=== PATIENT | female | born 1990 | race Caucasian/White ===

== ENCOUNTER → 2019-06-24 13:26 | Outpatient (BNVA) | payer OTHER, SELFPAY | PROVIDERS: Family Provider Family Medicine; Visit Provider Nurse Practitioner Women's Health | DX: R53.83 Other fatigue (principal); E11.9 Type 2 diabetes mellitus without complications | CPT/HCPCS: 80053; 82947; 83036; 84439; 84443; 85007; 85027 ==

== ENCOUNTER → 2020-03-14 14:31 | Outpatient (BNVA) | payer OTHER, SELFPAY | PROVIDERS: Family Provider Family Medicine; Visit Provider Psychiatry & Neurology Psychiatry | DX: F33.2 Major depressive disorder, recurrent severe without psychotic features (principal) | CPT/HCPCS: 99204 ==

== ENCOUNTER → 2020-04-16 08:49 | Outpatient (BNVA) | payer OTHER, SELFPAY | PROVIDERS: Family Provider Family Medicine; Visit Provider Psychiatry & Neurology Psychiatry | DX: F33.2 Major depressive disorder, recurrent severe without psychotic features (principal) | CPT/HCPCS: 99213 ==

== ENCOUNTER 2020-08-03 08:00 | Outpatient (CLI) | payer OTHER, SELFPAY ==
--- NOTE | 2020-08-03 08:30 | MM_ITS ---
WS: [id number] BILATERAL DIGITAL DIAGNOSTIC MAMMOGRAM MAMMOGRAPHY WITH CAD CLINICAL INFORMATION: N63.20 - Unspecified lump in the left breast, unspecified quadrant HISTORY: COMPARISON: None. TECHNIQUE: Bilateral CC, MLO, and ML views. FINDINGS: Scattered fibroglandular densities bilaterally. Palpable marker upper outer left breast. No definite underlying mammographic abnormalities. Ultrasound is pending. Asymmetric dense breast tissue upper outer right breast posteriorly. Recommend spot compression views and ultrasound for further evaluation. ULTRASOUND BREAST LEFT TECHNIQUE: Ultrasound left breast focused area of concern. CLINICAL INFORMATION: N63.20 - Unspecified lump in the left breast, unspecified quadrant COMPARISON: None. FINDINGS: Ultrasound left breast in the area of concern. Dense underlying breast and muscle tissue upper outer left breast and left axillary tail. No suspicious cystic or solid lesions. No lesions to target for b iopsy. Findings are benign. MM/[place] [id number] IMPRESSION: BI-RADS: 0-Incomplete: Need additional imaging evaluation FOLLOW UP: Need Additional Imaging RECOMMEND SPOT COMPRESSION VIEWS AND ULTRASOUND DENSE BREAST TISSUE UPPER OUTER RIGHT BREAST
--- NOTE | 2020-08-03 09:15 | US_ITS ---
WS: [id number] BILATERAL DIGITAL DIAGNOSTIC MAMMOGRAM MAMMOGRAPHY WITH CAD CLINICAL INFORMATION: N63.20 - Unspecified lump in the left breast, unspecified quadrant HISTORY: COMPARISON: None. TECHNIQUE: Bilateral CC, MLO, and ML views. FINDINGS: Scattered fibroglandular densities bilaterally. Palpable marker upper outer left breast. No definite underlying mammographic abnormalities. Ultrasound is pending. Asymmetric dense breast tissue upper outer right breast posteriorly. Recommend spot compression views and ultrasound for further evaluation. ULTRASOUND BREAST LEFT TECHNIQUE: Ultrasound left breast focused area of concern. CLINICAL INFORMATION: N63.20 - Unspecified lump in the left breast, unspecified quadrant COMPARISON: None. FINDINGS: Ultrasound left breast in the area of concern. Dense underlying breast and muscle tissue upper outer left breast and left axillary tail. No suspicious cystic or solid lesions. No lesions to target for b iopsy. Findings are benign. US/US breast LT limited* [id number] IMPRESSION: BI-RADS: 0-Incomplete: Need additional imaging evaluation FOLLOW UP: Need Additional Imaging RECOMMEND SPOT COMPRESSION VIEWS AND ULTRASOUND DENSE BREAST TISSUE UPPER OUTER RIGHT BREAST
== END 2020-08-03 08:01 | disposition home or self-care (01) ==
LOC: RADSHAW 08:02
PROVIDERS: PCP Family Medicine; Visit Provider Nurse Practitioner Women's Health
DX: N63.20 Unspecified lump in the left breast, unspecified quadrant (principal)
CPT/HCPCS: 76642; 77066

== ENCOUNTER 2020-08-15 11:05 | Outpatient (CLI) | payer OTHER, SELFPAY ==
--- NOTE | 2020-08-15 12:00 | MM_ITS ---
WS: [id number] RIGHT DIGITAL MAMMOGRAPHY WITH CAD CLINICAL INFORMATION: R92.8 - Other abnormal and inconclusive findings on diagnostic imaging of [facility] t COMPARISON: August 03, 2020 TECHNIQUE: 4 views of the right breast were obtained. FINDINGS: The right breast is composed of heterogeneous fibroglandular density tissue, which can limit the dete ction of small underlying mass lesions. Asymmetric dense breast tissue upper outer right breast appears stable. This persists on spot giorgi rony views. Ultrasound is pending. ULTRASOUND BREAST RIGHT TECHNIQUE: Ultrasound right breast focused area of concern. CLINICAL INFORMATION: R92.8 - Other abnormal and inconclusive findings on diagnostic imaging of breas t COMPARISON: None. FINDINGS: Ultrasound right breast at the 900-12:00 position. Dense underlying breast tissue. No cystic or solid lesions. No suspicious lesions. No lesions to target for biopsy. Findings are benign. MM/[place] [id number] IMPRESSION: BI-RADS: 2-Benign FOLLOW UP: Age 38 Recommend annual screening mammography age 38.
== END 2020-08-15 11:06 | disposition home or self-care (01) ==
LOC: RADSHAW 11:07
PROVIDERS: PCP Family Medicine; Visit Provider Nurse Practitioner Women's Health
DX: R92.8 Other abnormal and inconclusive findings on diagnostic imaging of breast (principal)
CPT/HCPCS: 76642; 77065

== ENCOUNTER 2021-08-09 14:46 | Outpatient (CLI) | payer OTHER, SELFPAY | END 2021-08-09 14:47 | disposition home or self-care (01) | PROVIDERS: PCP Family Medicine; Visit Provider Nurse Practitioner Women's Health | DX: N92.6 Irregular menstruation, unspecified (principal) | CPT/HCPCS: 36415; 81025; 84702 ==

== ENCOUNTER 2021-08-21 15:25 | Outpatient (CLI) | payer OTHER, SELFPAY ==
--- NOTE | 2021-08-21 | US_ITS ---
WS: [id number] EARLY OBSTETRICAL ULTRASOUND (<14 WEEKS). HISTORY: CONFIRM IUP AND DATING COMPARISON: None available. Transabdominal and transvaginal imaging is submitted. There is an intrauterine gestation. Gestational sac with a mean diameter of 1.7 cm corresponds to gestation of 6 weeks and 6 days. There is a crown- rump length measuring 0.4 cm corresponding to a gestation of 6 weeks 1 day. Normal cardiac activity 1 16 bpm. The gestational sac appears normally positioned. In the RIGHT adnexa is a complex cystic mass with low-level echoes in the RIGHT adnexa. The entire co mplex cystic structure measures 4.5 x 2.3 x 6.0 cm. This cystic mass is inseparable from the normal R IGHT ovary which does have follicles. This complex cystic area associated with the RIGHT ovary measur es 2.3 x 2.7 x 2.8 cm. Similar mass was noted on a prior ultrasound from 02/21/2010. There is through transmission. No increased vascularity. The adjacent ovary has collapsing corpus luteal cyst. Small amount of fluid adjacent to the RIGHT ovary. The LEFT ovary is identified. LEFT ovary measures 1.6 x 2.7 x 2.2 cm. Adjacent and just superior to t he LEFT ovary is a complex heterogeneous area and fluid. There is a lobular appearance of the soft ti ssue and around cystic area. No increased vascularity and is no peristalsis. This round cystic area h as appearance of a large yolk sac. US/US OB <=14 wk fetus w transvag IMPRESSION: 1. Single intrauterine gestation of 6 weeks 1 day. Normal cardiac activity. 2. Large complex cystic mass in the RIGHT adnexa adjacent and inseparable from the ovary. There was a similar mass in the RIGHT adnexa on a prior study from 02/21/2010. This may be a new hemorrhagic cyst. Endometrioma is also a likely p ossibility. 3. Abnormal lobulated soft tissue, cystic structure and fluid in the LEFT adne xa adjacent to the ovary. This cystic structure has the appearance of a very la rge yolk sac. Possibility of a concordant ectopic should be considere d although I think this is less likely. This may be a dilated fallopian tube or adjacent clotted blood from hemorrhage associated with the ovary. 4. Recommend short-term ultrasound follow-up and/or serial beta hCGs. 5. I did discuss these findings with the patient at the time of the ultrasound .
== END 2021-08-21 15:26 | disposition home or self-care (01) ==
LOC: RAD 15:27
PROVIDERS: PCP Family Medicine; Visit Provider Obstetrics & Gynecology
DX: Z36.87 Encounter for antenatal screening for uncertain dates; N83.291 Other ovarian cyst, right side; Z3A.01 Less than 8 weeks gestation of pregnancy
CPT/HCPCS: 76801; 76817

== ENCOUNTER → 2021-09-10 10:02 | Outpatient (BNVA) | payer OTHER, SELFPAY | PROVIDERS: PCP Family Medicine; Visit Provider Obstetrics & Gynecology | DX: O99.210 Obesity complicating pregnancy, unspecified trimester (principal); N83.291 Other ovarian cyst, right side | CPT/HCPCS: 80307; 82950; 84315; 84443; 85027; 86592; 86762; 86803; 86850; 86900; 87086; 87340; 87806 ==

== ENCOUNTER → 2021-09-25 08:15 | Outpatient (BNVA) | payer OTHER, SELFPAY | PROVIDERS: PCP Family Medicine; Visit Provider Obstetrics & Gynecology | DX: O99.210 Obesity complicating pregnancy, unspecified trimester (principal); Z12.4 Encounter for screening for malignant neoplasm of cervix; N83.291 Other ovarian cyst, right side | CPT/HCPCS: 84315; 87491; 87591; 88175 ==

== ENCOUNTER 2021-10-18 13:33 | Outpatient (CLI) | payer OTHER, SELFPAY ==
--- NOTE | 2021-10-18 14:15 | US_ITS ---
WS: [id number] Exam: US pelvic complete* [id number] Date/Time of Exam: 10/18/2021 2:19 PM Reason For Exam: N83.291 - Other ovarian cyst, right side The ovaries are identified. Both ovaries demonstrate normal vascularity. There is a 1 cm cyst in the right ovary. Normal left ovary. No obvious adnexal mass identified on today's exam. Viable intrauteri ne with single vertex fetus is noted estimated at about 15 weeks gestational age. Heart rat e 160 bpm. US/US pelvic complete* [id number] IMPRESSION: 1. 1 cm cyst in the right ovary. The ovaries were otherwise unremarkable with n ormal vascularity. 2. No obvious adnexal mass identified. No abnormal free fluid in the pelvis. 3. Viable intrauterine with single vertex fetus estimated at about 15 weeks gestational age. Heart rate 160 bpm.
== END 2021-10-18 13:34 | disposition home or self-care (01) ==
PROVIDERS: Visit Provider Obstetrics & Gynecology
DX: O34.82 Maternal care for other abnormalities of pelvic organs, second trimester (principal); N83.291 Other ovarian cyst, right side; Z3A.15 15 weeks gestation of pregnancy
CPT/HCPCS: 76856

== ENCOUNTER → 2021-11-01 16:14 | Outpatient (BNVA) | payer OTHER, SELFPAY | PROVIDERS: Visit Provider Obstetrics & Gynecology | DX: R39.9 Unspecified symptoms and signs involving the genitourinary system (principal) | CPT/HCPCS: 81000; 87086 ==

== ENCOUNTER 2022-02-19 11:44 | Outpatient (CLI) | payer OTHER, SELFPAY ==
[2022-02-19 11:50] VITALS: BMI 40.8
[2022-02-19 11:53] VITALS: BP 128/73; PULSE 75
[2022-02-19 11:58] VITALS: RESP 16
[2022-02-19 12:08] VITALS: BP 116/66; PULSE 71
[2022-02-19 12:23] VITALS: BP 115/65; PULSE 68
== END 2022-02-19 12:32 | disposition home or self-care (01) ==
LOC: OPOB 11:45 → OBGYN 11:46
PROVIDERS: Visit Provider Family Medicine
DX: O36.8190 Decreased fetal movements, unspecified trimester, not applicable or unspecified (principal)
CPT/HCPCS: 59025; 99211

== ENCOUNTER 2022-04-08 01:35 | Inpatient (IN) | payer OTHER, SELFPAY ==
[2022-04-08] VITALS (102 sets, daily range): BP systolic 116–168; BP diastolic 56–86; PULSE 61–150; RESP 15–16; TEMP 36.3–36.8; O2SAT 87–100; BMI 39.2
[2022-04-08 01:31] LABS: Actim Prom Positive
[2022-04-08 01:31] LABS: Nitrazine Paper, PH Inconclusive
[2022-04-08 02:57] LABS: Basophils % 0.4 %; Eosinophils # 0.2 10^3/uL (0.0-0.8); Eosinophils % 1.6 %; Hematocrit 32.3 % (37.0-47.0); Hemoglobin 10.7 g/dL (11.5-15.3); Lymphocytes # 1.5 10^3/uL (0.8-4.8); Lymphocytes % 14.2 %; Mean Corpuscular HGB Conc 33.1 g/dL (30.0-36.0); Mean Corpuscular Hemoglobin 29.3 pg (28.0-34.0); Mean Corpuscular Volume 88.5 fl (81-99); Mean Platelet Volume 10.5 fL (7.4-10.4); Monocytes # 0.7 10^3/uL (0.2-0.9); Monocytes % 6.4 %; Neutrophils # 8.29 10^3/uL (1.8-7.7); Neutrophils % 76.7 %; Nucleated Red Blood Cells % 0 %; Platelet Count 252 10^3/cmm (130-400); Red Blood Count 3.65 10^6/uL (4.1-5.3); Red Cell Distribution Width 13.5 % (12.1-15.1); White Blood Count 10.8 10^3/uL (4.0-10.0)
[2022-04-08] MEDS: dextrose 5%-lactated ringers 1,000 ML 125 ML IV ×2 (03:13→12:57)
[2022-04-08] MEDS: miSOPROStol 100 mcg tablet 25 MCG VAGINAL (03:13)
[2022-04-08] MEDS: lactated ringers 1,000 ML 999 ML IV (04:48)
--- NOTE | 2022-04-08 05:49 | ANES.PREANE2 ---
Pre-Anesthetic Assessment Height/Weight: Height 1.65 m Weight 107.048 kg Temp Pulse Resp BP O2 Del Method 98.1 F 64 16 129/65 04/08/22 04:52 04/08/22 05:31 04/08/22 01:16 04/08/22 05:31 04/08/22 05:03 Epidural Familial anesthetic complications: None Was Beta Manuela taken within 24 hours: N/A Was Clonidine taken within 24 hours: N/A Last Intake: 19:00 Social No alcohol and No tobacco Exam alert, oriented x 3, clear to auscultation bilaterally and regular rate & rhythm Airway Submandibular: within normal limits Cervical ROM: within normal limits Mallampati: Class II Dentition: full History/ROS No significant history except as noted and No significant complaints Pulmonary None reported CV/HEM None reported None reported Hepatic None reported GI Gastroesophageal Reflux Disease Metabolic None reported Musc/skel None reported Neuropsych None reported Anesthetic Plan ASA status: 2 Anesthesia: Regional (specify below) (Epidural) Medications/Allergies Home Medications Medication Instructions Recorded Confirmed Last Taken Type prenat.vits,lilian,wjk-chum-cugoz 1 tab PO DAILY 09/02/21 04/08/22 04/07/22 History Allergies Allergy/AdvReac Type Severity Reaction Status Date / Time No Known Allergies Allergy Verified 04/08/22 01:31 Current Medications Generic Name Dose Route Start Last Admin Trade Name Pascualq PRN Reason Stop Dose Admin Dextrose/Lactated Ringer's 1,000 mls @ 125 mls/hr 04/08/22 01:45 04/08/22 04:49 Dextrose 5%-Lactated Ringers IV 0 mls/hr .Q8H ARLEY Infusion Lactated Ringer's 1,000 mls @ 999 mls/hr 04/08/22 04:28 04/08/22 04:48 Lactated Ringers IV 999 mls/hr .Q1H1M PRN Administration See label comments Misoprostol 25 mcg 04/08/22 01:45 04/08/22 03:13 Misoprostol 100 Mcg Tablet VAGINAL 04/08/22 09:46 25 mcg Q4H ARLEY Administration PFSH Anesthesia Medical History Anxiety and depression Has had symptoms on and off since the age of 15. Has been on medication in the past-Wellbutrin and Abilify. Has not been on medication since at least 2012. She does not have a therapist or psychiatrist currently. No pertinent past medical history Denies diabetes, asthma, hypertension, seizures, DVT/PE, stroke PCP: None Surgical History No history of previous surgery Family History Father Hypertension Stroke Hypercholesteremia Grandmother Diabetes maternal Breast cancer maternal--dx age 40 Family/Other Ovarian cancer Paternal Great Aunt--dx age unknown Colon cancer Paternal Great Aunt--dx age unknown Breast cancer Paternal Great Aunt--dx age unknown Sister Thyroid disease Diabetes Denies family history of Heart disease Uterine cancer Female Reproductive History Date of last menstrual period: 06/10/19 : 2 Data Anesthesia 04/08/22 02:30 Short CBC 04/08/22 Range/Units 02:30 WBC 10.8 H (4.0-10.0) 10^3/uL Hgb 10.7 L (11.5-15.3) g/dL Hct 32.3 L (37.0-47.0) % MCV 88.5 (81-99) fl Plt Count 252 (130-400) 10^3/cmm Neut % (Auto) 76.7 % Neut # (Auto) 8.29 H (1.8-7.7) 10^3/uL Cardiac Studies: No Data to Display
--- NOTE | 2022-04-08 06:28 | ANES.PROC ---
Anesthesia Procedures Procedure/Date: 04/08/22 Epidural: Time Out Performed: Yes Consents Signed: Procedure Consent and NPO Consent Consent: requested by attending/covering physician, from patient, risks and benefits reviewed and patient agrees to proceed Lumbar Level: L3-L4 Epidural position: sitting Epidural procedure: sterile prep of area, 1% lidocaine to numb the area (3mL), neg for paresthesia, test dose given, 1.5% xylocaine 1:200k epi (3mL/2mL), 0.2% Ropivacaine bolus ml (5), placed PCEA, no systemic response, sterile dressing applied and 0.2% Ropiavacaine @ mls/hr (11) Additional Comments: GRISEL 6cm, catheter placed at 11cm
--- NOTE | 2022-04-08 07:00 | PM.OPHPUD ---
Labor & Delivery H&P Update Date of Procedure: April 08, 2022 Date H&P Performed: 04/01/22 Admission Diagnosis: 32-year-old 2 para 1-0-0-1 at 39 weeks estimated gestational age presenting with spontaneous rupture of membranes Planned procedure: Spontaneous vaginal delivery Other information: The patient presented to the hospital after having spontaneous rupture of membranes. Her cervix was still unfavorable, and the decision was made to place her on Cytotec 25 mcg per vagina. heart tones were reactive and appropriate. Her has been relatively unremarkable. Her labs been notable for being B+ with an antibody negative. She is rubella immune. Her GBS status is negative. The remainder of her infectious disease profile is within normal limits.
[2022-04-08] MEDS: oxytocin 30 UNIT/500 ML BAG IV (13:03)
[2022-04-08] MEDS: acetaminophen 325 mg Tablet 650 MG PO (13:06)
--- NOTE | 2022-04-08 17:50 | P.PCNOB_ITS ---
Delivery Note: Date of delivery: April 08, 2022 Pre-delivery diagnoses: 32-year-old 2 para 1-0-0-1 at 39 weeks estimated gestational age presenting with spontaneous rupture membranes Post-delivery diagnoses: Status post spontaneous vaginal delivery Procedure: Spontaneous vaginal delivery Delivering Physician: Mike Henry Estimated blood loss (mL): 100 Pre-Delivery Course: The patient presented to the hospital with rupture membranes. She was not having consistent contractions. Her cervix was unfavorable, and the decision was made to start with Cytotec. An epidural was placed. Her contractions were irregular and spacing out, so Pitocin was added to augment her labor. She then progressed to complete without difficulty. Delivery: DELIVERY: The patient progressed to complete without difficulty. She delivered a female with a weight of 6 pounds 12 ounces with Apgars of 9, 9. The baby was delivered from the NICKOLAS position and placed on the mother's abdomen. The cord was then clamped and cut. There was no nuchal cord. There was no meconium. The placenta and 3 vessel cord were delivered intact shortly thereafter. The perineum and vaginal vault were carefully examined. No significant lacerations were noted. Both the mother and the baby were in stable condition. Post-Delivery Status: Good History History History 2 Term 1 0 Miscarriages/Ectopic 0 Living Children 1 A&P Assessment and plan (1) 39 weeks gestation of : I anticipate routine care. (2) Spontaneous vaginal delivery: Coding Level of Care Code Acute Flexo Folder Gluer Operator for Chg Fwd Diagnoses 39 weeks gestation of Z3A.39 Spontaneous vaginal delivery O80
[2022-04-08] MEDS: docusate sodium 100 mg Capsule PO (20:40)
[2022-04-08] MEDS: ibuprofen 800 mg tablet PO (20:40)
[2022-04-09] MEDS: acetaminophen 325 mg Tablet 650 MG PO (00:55)
[2022-04-09 01:35] VITALS: BP 116/82; PULSE 78; RESP 17; O2SAT 97
[2022-04-09 03:24] VITALS: BP 124/76; PULSE 76; RESP 18; O2SAT 98
[2022-04-09] MEDS: HYDROcodone-acetaminophen 5-325 mg Tablet PO ×2 (04:12→10:19)
[2022-04-09 05:41] LABS: Hematocrit 28.5 % (37.0-47.0); Hemoglobin 9.3 g/dL (11.5-15.3); Mean Corpuscular HGB Conc 32.6 g/dL (30.0-36.0); Mean Corpuscular Hemoglobin 29.2 pg (28.0-34.0); Mean Corpuscular Volume 89.3 fl (81-99); Mean Platelet Volume 10.1 fL (7.4-10.4); Platelet Count 201 10^3/cmm (130-400); Red Blood Count 3.19 10^6/uL (4.1-5.3); Red Cell Distribution Width 13.7 % (12.1-15.1); White Blood Count 10.2 10^3/uL (4.0-10.0)
--- NOTE | 2022-04-09 06:55 | PM.OBGYDC ---
Discharge Providers RESIDENT CARE MANAGER Date of Admission: 04/08/22 01:35 Date of Discharge: 04/09/22 Attending Provider at Admission: Mike Henry MD Attending Provider at Discharge: Mike Henry MD Diagnoses at Discharge Discharge Diagnosis (1) 39 weeks gestation of : Status: Acute (2) Spontaneous vaginal delivery: Status: Acute Reason for Visit Reason for Visit: POSSIBLE SROM Hospital Course Hospital Course The patient has had an unremarkable hospital stay. She arrived the day prior to delivery with spontaneous rupture membranes. She was placed on Cytotec 25 mcg. An epidural was placed. Her labor was then augmented with Pitocin. She progressed to complete and had an unremarkable delivery of a healthy appearing 9-week female . Her course was also unremarkable. Her bleeding was within normal limits. Her pain was reasonably well controlled. She did have some problems of cramping this morning, but that resolved with hydrocodone. She did breast-feed a little bit initially, but never intended to breast-feed for long, and has transitioned to bottlefeeding with formula only at this point. Information Peripartum Data: Infant Delivery Method: Vaginal Physical Exam Narrative: The patient is alert. She appears comfortable. Her heart has a regular rate and rhythm with no murmurs appreciated. Lungs are clear to auscultation bilaterally. Her fundus is firm and below the umbilicus. Urinary Catheter Management: Blanca Latex: Cath Placed During This Visit: yes, but has since been removed by the nurse Reason for Continuing Indwelling Catheter: Decision to DC Catheter Urinary Catheter Date of Insertion: 04/08/22 Urinary Catheter Time of Insertion: 09:45 Date Urinary Catheter Removed: 04/08/22 Time Urinary Catheter Discontinued: 17:25 History History History 2 Term 1 0 Miscarriages/Ectopic 0 Living Children 1 Discharge Data Studies Completed and Pending Laboratory Results WBC 10.2 10^3/uL (4.0-10.0) H 04/09/22 05:30 RBC 3.19 10^6/uL (4.1-5.3) L 04/09/22 05:30 Hgb 9.3 g/dL (11.5-15.3) L 04/09/22 05:30 Hct 28.5 % (37.0-47.0) L 04/09/22 05:30 MCV 89.3 fl (81-99) 11/30/22 05:30 MCH 29.2 pg (28.0-34.0) 04/09/22 05:30 MCHC 32.6 g/dL (30.0-36.0) 04/09/22 05:30 RDW 13.7 % (12.1-15.1) 04/09/22 05:30 Plt Count 201 10^3/cmm (130-400) 04/09/22 05:30 MPV 10.1 fL (7.4-10.4) 04/09/22 05:30 Neut % (Auto) 76.7 % 04/08/22 02:30 Lymph % (Auto) 14.2 % 04/08/22 02:30 [place] % (Auto) 6.4 % 04/08/22 02:30 Eos % (Auto) 1.6 % 04/08/22 02:30 Baso % (Auto) 0.4 % 04/08/22 02:30 Neut # (Auto) 8.29 10^3/uL (1.8-7.7) H 04/08/22 02:30 Lymph # (Auto) 1.5 10^3/uL (0.8-4.8) 04/08/22 02:30 [place] # (Auto) 0.7 10^3/uL (0.2-0.9) 04/08/22 02:30 Eos # (Auto) 0.2 10^3/uL (0.0-0.8) 04/08/22 02:30 Baso # (Auto) 0.0 10^3/uL (0.0-0.1) 04/08/22 02:30 Nucleated RBC % (auto) 0 % 04/08/22 02:30 Nucleated RBCs # 0.0 /100WBC 04/08/22 02:30 Insulin-like GF I Positive 04/08/22 01:24 Vitals Last Vital Signs Temp 98 F 04/08/22 23:19 Pulse 76 04/09/22 03:24 Resp 18 04/09/22 03:24 BP 124/76 04/09/22 03:24 Pulse Ox 98 04/09/22 03:24 O2 Del Method 04/09/22 01:35 Discharge Plan Discharge Patient Disposition: Home Condition: Stable Prescriptions: New ibuprofen 800 mg Tablet 800 mg PO TID Qty: 45 0RF Continued prenat.vits,lilian,auz-xaso-zsikz Tablet 1 tab PO DAILY Discharge Orders: Discharge Order (Routine); Ordered 04/09/22 Ordered By: Mike Henry Referrals: Mike Henry MD [Physician] - 6 Weeks Discharge Diet: Usual diet Discharge Activity: Limit activity as instructed Patient Instructions: Opioid Safety Discharge Attestations RESIDENT CARE MANAGER Time Spent in Discharge Care*: less than 30 min Coding Level of Care Code Acute Color Expert for Chg Fwd Diagnoses 39 weeks gestation of Z3A.39 Spontaneous vaginal delivery O80
[2022-04-09] MEDS: ibuprofen 800 mg tablet PO ×2 (08:06→15:06)
[2022-04-09] MEDS: prenatal vitamin Capsule 1 CAP PO (08:06)
[2022-04-09] MEDS: docusate sodium 100 mg Capsule PO (08:07)
--- NOTE | 2022-04-09 09:00 | ANE.PACU2 ---
Inpatient post-anesthesia follow up: Airway intact: Yes Vital signs: Temperature 98 F Pulse Rate 66 Respiratory Rate 16 Blood Pressure 121/69 Pulse Oximetry 99 Oxygen Delivery Me thod Room Air Oxygen Flow Rate Fraction of Inspir ed Oxygen Hydration adequate: Yes Nausea and vomiting: No Pain level: 1 Mental status: Baseline
[2022-04-09 19:00] VITALS: BP 121/69; PULSE 66; RESP 16; O2SAT 99
== END 2022-04-09 19:05 | disposition home or self-care (01) | DRG 807 ==
PROVIDERS: Admitting Provider Family Medicine; Visit Provider Family Medicine
DX: O99.214 Obesity complicating childbirth (principal); Z37.0 Single live birth; O34.83 Maternal care for other abnormalities of pelvic organs, third trimester; N83.201 Unspecified ovarian cyst, right side; Z3A.39 39 weeks gestation of pregnancy; Z79.891 Long term (current) use of opiate analgesic
CPT/HCPCS: 12345; 36415; 51702; 59025; 59409; 83986; 84112; 85025; 85027; 98960; 99211; J2590; J2795; J3490; J7120; J7121

== ENCOUNTER 2022-04-19 06:45 | Observation (INO) | payer OTHER, SELFPAY ==
[2022-04-18] VITALS (26 sets, daily range): BP systolic 128–219; BP diastolic 61–117; PULSE 56–85; BMI 39.2
[2022-04-18 14:36] LABS: Basophils # 0.1 10^3/uL (0.0-0.1); Basophils % 0.8 %; Eosinophils # 0.2 10^3/uL (0.0-0.8); Eosinophils % 3.1 %; Hematocrit 37.1 % (37.0-47.0); Hemoglobin 11.8 g/dL (11.5-15.3); Lymphocytes % 27.5 %; Mean Corpuscular HGB Conc 31.8 g/dL (30.0-36.0); Mean Corpuscular Hemoglobin 28.4 pg (28.0-34.0); Mean Corpuscular Volume 89.4 fl (81-99); Mean Platelet Volume 9.3 fL (7.4-10.4); Monocytes # 0.4 10^3/uL (0.2-0.9); Monocytes % 5.6 %; Neutrophils # 4.62 10^3/uL (1.8-7.7); Neutrophils % 62.6 %; Nucleated Red Blood Cells % 0 %; Platelet Count 381 10^3/cmm (130-400); Red Blood Count 4.15 10^6/uL (4.1-5.3); Red Cell Distribution Width 13.4 % (12.1-15.1); White Blood Count 7.4 10^3/uL (4.0-10.0)
[2022-04-18 14:49] LABS: Add Urine Culture? No; Add Urine Microscopic? YES; Bacteria Urine TRACE /hpf; Bilirubin Urine Neg (Negative); Blood Urine 3+ (Negative); Glucose Urine UA Norm (Normal); Ketones Urine Negative (Negative); Leukocyte Esterase Urine Negative (Negative); Mucus Urine 1+ /hpf; Nitrate Urine Negative (Negative); Protein Urine Neg (Negative); Specific Gravity, Urine 1.015 (1.005-1.030); Squamous Epithelial Cell Urine 0-4 /hpf (0-5); Urine Appearance Clear (CLEAR); Urine Color Yellow (Yellow); Urobilinogen Urine Norm (Negative); WBC Urine 0-4 /hpf (0-5); pH Urine 7 (5-7)
[2022-04-18 14:51] LABS: Alanine Aminotransferase 30 U/L (0-33); Albumin Level 3.8 g/dL (3.5-5.2); Alkaline Phosphatase 97 U/L (35-105); Anion Gap 14.8 (5-19); Aspartate Amino Transferase 17 U/L (0-32); Blood Urea Nitrogen 8 mg/dL (6-20); Calcium 9.1 mg/dL (8.5-10.5); Carbon Dioxide 26 mmol/L (22-29); Chloride 101 mmol/L (98-107); Globulin 3.6 g/dL (1.3-4.6); Glomerular Filtration Rate 95.8 mL/min (90-130); Glucose 75 mg/dL (65-115); Osmolality Calculated 283 mOsm/kg (285-295); Potassium 3.8 mmol/L (3.5-5.1); Sodium 138 mmol/L (136-145); Total Bilirubin 0.4 mg/dL (0.15-1.2); Total Protein 7.4 g/dL (6.6-8.7); Uric Acid 4.4 mg/dL (2.4-5.7)
[2022-04-18 14:59] LABS: Urine Creatinine 111 mg/dL (28-217); Urine Protein Random 16 mg/dL
[2022-04-18 15:00] LABS: UPRO/UCREAT Ratio 0.14 mg/mg CR
[2022-04-18] MEDS: labetalol 200 mg Tablet PO ×2 (15:24→17:13)
[2022-04-18] MEDS: ibuprofen 800 mg tablet PO (15:56)
[2022-04-18] MEDS: labetalol 5 mg/mL SDV 20mL 20 MG IVP (15:57)
[2022-04-18] MEDS: labetalol 5 mg/mL SDV 20mL 40 MG IVP (16:13)
[2022-04-18] MEDS: labetalol 5 mg/mL SDV 20mL 80 MG IVP (16:28)
--- NOTE | 2022-04-18 16:36 | CTR_ITS ---
PROCEDURE INFORMATION: Exam: CT Head Without Contrast Exam date and time: 04/18/2022 4:56 PM Age: 32 years old Clinical indication: Pain; Headache; Additional info: Severe headache and elevated blood pressure, call ob and i can bring her down. TECHNIQUE: Imaging protocol: Computed tomography of the head without contrast. Radiation optimization: All CT scans at this facility use at least one of these dose optimization techniques: automated exposure control; mA and/or kV adjustment per patient size (includes targeted exams where dose is matched to clinical indication); or iterative reconstruction. COMPARISON: No relevant prior studies available. RADIATION DOSE METRICS: Total DLP (mGy-cm): 1033.74 FINDINGS: Brain: Normal. No hemorrhage. Unremarkable white matter. No mass effect. Cerebral ventricles: No ventriculomegaly. Paranasal sinuses: Visualized sinuses are unremarkable. No fluid levels. Mastoid air cells: Visualized mastoid air cells are well aerated. Bones/joints: Unremarkable. No acute fracture. Soft tissues: Unremarkable. CT/CT head wo con* [id number] IMPRESSION: No acute intracranial abnormality.
[2022-04-18] MEDS: sodium chloride 0.9% 1,000 ML 250 ML IV (17:14)
[2022-04-18] MEDS: HYDROcodone-acetaminophen 5-325 mg Tablet PO (20:47)
[2022-04-19] VITALS (72 sets, daily range): BP systolic 100–196; BP diastolic 51–92; PULSE 52–77; RESP 16–18; TEMP 36–36.6; O2SAT 96–98
[2022-04-19] MEDS: hydroCHLOROthiazide 25 mg Tablet PO ×2 (00:53→08:46)
[2022-04-19] MEDS: HYDROcodone-acetaminophen 5-325 mg Tablet PO ×3 (00:57→12:05)
[2022-04-19] MEDS: cloNIDine 0.1 mg Tablet PO ×2 (02:14→03:56)
[2022-04-19] MEDS: magnesium sulfate premix 4 GM/100 ML PREMIX IV (04:20)
[2022-04-19] MEDS: dextrose 5%-lactated ringers 1,000 ML 75 ML IV (04:20)
[2022-04-19] MEDS: magnesium sulfate premix 20 GM/500 ML BAG IV (04:20)
[2022-04-19] MEDS: cloNIDine 0.1 mg Tablet 0.2 MG PO (06:02)
[2022-04-19] MEDS: labetalol 200 mg Tablet 400 MG PO (08:46)
[2022-04-19] MEDS: ibuprofen 800 mg tablet PO (08:59)
[2022-04-19] MEDS: NIFEdipine ER (24 hr) 30 mg Tablet 60 MG PO (10:16)
--- NOTE | 2022-04-19 11:23 | CTR_ITS ---
PROCEDURE INFORMATION: Exam: CTA Head With Contrast, Arteriography and venography Exam date and time: 04/19/2022 1:32 PM Age: 32 years old Clinical indication: Pain; Headache; Additional info: Severe occipital headache, also needs venogram TECHNIQUE: Imaging protocol: Computed tomographic angiography and venography of the head with contrast. Exam focused on the arteries and veins. 3D rendering (Not supervised by radiologist): MIP and/or 3D reconstructed images were created by the technologist. Radiation optimization: All CT scans at this facility use at least one of these dose optimization techniques: automated exposure control; mA and/or kV adjustment per patient size (includes targeted exams where dose is matched to clinical indication); or iterative reconstruction. Contrast material: OMNIPAQUE 350; Contrast volume: 100 ml; Contrast route: INTRAVENOUS (IV); COMPARISON: CT head wo con* [id number] 04/18/2022 4:56 PM RADIATION DOSE METRICS: Total DLP (mGy-cm): 3052.54 FINDINGS: ANTERIOR CIRCULATION: Right internal carotid artery: Intracranial segment is patent with no significant stenosis. No aneurysm. Right middle cerebral artery: No occlusion or significant stenosis. No aneurysm. Right anterior cerebral artery: No occlusion or significant stenosis. No aneurysm. Left internal carotid artery: Intracranial segment is patent with no significant stenosis. No aneurysm. Left middle cerebral artery: No occlusion or significant stenosis. No aneurysm. Left anterior cerebral artery: No occlusion or significant stenosis. No aneurysm. POSTERIOR CIRCULATION: Right vertebral artery: No occlusion or significant stenosis. No aneurysm. Left vertebral artery: No occlusion or significant stenosis. No aneurysm. Basilar artery: No occlusion or significant stenosis. No aneurysm. Right posterior cerebral artery: No occlusion or significant stenosis. No aneurysm. Left posterior cerebral artery: No occlusion or significant stenosis. No aneurysm. Superior sagittal sinus: Patent. Straight sinus: Patent. Transverse sinuses: Patent. Sigmoid sinuses: Patent. Internal jugular veins: Limited visualized internal jugular veins are patent. Brain: Questionable subtle hypoattenuation in the left greater than right posterior parieto-occipital lobes, possibly artifactual. No definite mass, mass effect, or midline shift. Cerebral ventricles: No ventriculomegaly. Bones/joints: Unremarkable. No acute fracture. Soft tissues: Unremarkable. CT/CT angio head [id number] IMPRESSION: 1. Questionable subtle hypoattenuation in the left greater than right posterior parieto-occipital lobes, possibly artifactual. Given the patient's clinical history, MRI may be useful to exclude posterior reversible encephalopathy syndrome. 2. No large vessel stenosis or occlusion. No evidence of venous sinus thrombosis.
--- NOTE | 2022-04-19 11:27 | P.HP_ITS ---
Providers/Chief Complaint Admitting Physician: Mike Henry MD Chief Complaint: ELEVATED BLOOD PRESSURES POST History of Present Illness Talia is a 32-year-old 2 para 2-0-0-2 female who had an unremarkable vaginal delivery on March 08. Over the last week, the patient has had intermittent severe headaches that have at times been bad enough that she has been incapacitated and crying. When I saw her in my office last week, her headache started in the occipital region but she began having pulsating/stabbing pains in her right temporal area. Yesterday, when I saw her she was once again having what started as an occipital headache, but progressed to have a pulsating stabbing pains in her left alevism area. In addition to that she was also having severe elevations of her blood pressure including some systolic blood pressures greater than 200. She was having no other symptoms of preeclampsia. Her swelling was improving. There was no obvious visual changes. There was no abdominal pain. And her preeclamptic profile done both last week and this think were within normal limits. Review of Systems General: Reports: 10 or more systems reviewed and unremarkable except in HPI and below Const: Reports: fatigue; Denies: fever(s) Eyes: Denies: change in vision Card: Denies: chest pain Musc: Reports: back pain Jose/Lymph: Denies: easy bruising Medications/Allergies Home Medications Medication Instructions Recorded Confirmed Last Taken Type prenat.vits,lilian,ndn-bvti-ygiia 1 tab PO DAILY 09/02/21 04/08/22 04/18/22 08:00 History ibuprofen 800 mg tablet 400 mg PO TID 04/18/22 04/18/22 12:30 History escitalopram oxalate 10 mg tablet 10 mg PO DAILY #30 tabs 04/20/22 Unknown Rx (Lexapro) hydrochlorothiazide 25 mg tablet 25 mg PO DAILY #30 tabs 04/20/22 Unknown Rx nifedipine 30 mg tablet,extended 30 mg PO DAILY #30 tabs 04/20/22 Unknown Rx release 24 hr (Procardia XL) Allergies Allergy/AdvReac Type Severity Reaction Status Date / Time No Known Allergies Allergy Verified 04/08/22 01:31 PFSH Acute PFSH: Medical History Anxiety and depression Has had symptoms on and off since the age of 15. Has been on medication in the past-Wellbutrin and Abilify. Has not been on medication since at least 2012. She does not have a therapist or psychiatrist currently. No pertinent past medical history Denies diabetes, asthma, hypertension, seizures, DVT/PE, stroke PCP: None Surgical History No history of previous surgery Family History Father Hypertension Stroke Hypercholesteremia Grandmother Diabetes maternal Breast cancer maternal--dx age 40 Family/Other Ovarian cancer Paternal Great Aunt--dx age unknown Colon cancer Paternal Great Aunt--dx age unknown Breast cancer Paternal Great Aunt--dx age unknown Sister Thyroid disease Diabetes Denies family history of Heart disease Uterine cancer Female Reproductive History: Date of last menstrual period: 06/10/19 Vitals/I&O/Wt Last Vital Signs Pulse 62 04/19/22 10:26 Resp 16 04/19/22 04:03 BP 132/70 04/19/22 10:26 Pulse Ox 98 04/19/22 04:10 04/18/22 04/19/22 04/19/22 22:59 06:59 14:59 Output Total 750 / 750 1700 / 1700 Balance -750 / -750 -1700 / -1700 Weight last 48 hrs Weight 236 lb Weight 236 lb Physical Exam Const: COMMON NORMALS: patient oriented x3 and alert HENMT: COMMON NORMALS: moist oral mucous membranes HEAD & SCALP: normal to inspection Chest: COMMONS NORMALS: normal inspection of the chest Resp: COMMON NORMALS: clear to auscultation bilaterally AUSCULTATION: clear to auscultation bilaterally Cardio: COMMON NORMALS: regular rate and regular rhythm RATE: regular rate RHYTHM: regular rhythm GI: INSPECTION: Yes normal to inspection Extremity: COMMON NORMALS: normal to inspection GENERAL: Yes edema (Trace) Neuro: COMMON NORMALS: patient oriented x3, moves all extremities and no sensory deficits noted SENSORIUM/ORIENTATION: Yes alert CRANIAL NERVES: Yes CN normal except as noted Psych: COMMON NORMALS: mental status grossly normal Skin: COMMON NORMALS: no rashes or lesions noted GENERAL SKIN EXAM: no rashes or lesions noted Urinary Catheter Management: Blanca: Cath Placed During This Visit: yes Reason for Continuing Indwelling Catheter: Accurate Measurement of Urinary Output in Critically Ill Patients Urinary Catheter Date of Insertion: 04/19/22 Urinary Catheter Time of Insertion: 04:45 Data 04/18/22 14:15 04/18/22 14:15 CT Head: Radiologist's impression: No acute abnormalities noted A&P Assessment and plan (1) Severe headache: The patient continues to have severe headaches unless she is being treated continuously with Tylenol and ibuprofen. After discussing the case with Dr. Myrick we will proceed with a CT venogram and angiogram of the head. (2) hypertension: The patient was initially treated with labetalol. Later she was treated with hydrochlorothiazide and clonidine. Labetalol did not seem to be that effective, so I am going to shift her to p.o. Procardia XL. We will continue to use hydralazine as needed for acute blood pressure issues. I also have her on magnesium. Depending on how she responds we may keep her on for 12 to 24 hours. At this point she is diuresing very well and she has no other symptoms of preeclampsia, so I will probably consider taking her off the magnesium before the full 24 hours is up. Attestations Medical Necessity Statement*: Anticipate the patient will spend at least 1 more night in the hospital with us. She may require more depending on how well we control her blood pressure as well as how we feel better evaluation of her headaches. 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
[2022-04-19] MEDS: iohexol 350 mg/mL 500 mL Btl (per mL) IV (13:46)
[2022-04-20] VITALS (7 sets, daily range): BP systolic 104–123; BP diastolic 52–65; PULSE 67–78; RESP 16; TEMP 36.3
[2022-04-20] MEDS: ibuprofen 800 mg tablet PO (03:42)
--- NOTE | 2022-04-20 08:04 | PM.DCS ---
Discharge Providers Date of Admission: 04/19/22 06:45 Date of Discharge: April 20, 2022 Attending Provider at Admission: Mike Henry MD Attending Provider at Discharge: Mike Henry MD Diagnoses at Discharge Discharge Diagnosis (1) Severe headache: Status: Acute (2) hypertension: Status: Acute Reason for Visit Reason for Visit: ELEVATED BLOOD PRESSURES POST Hospital Course Hospital Course The patient presented to the hospital with severe headaches and elevated blood pressures. She was placed on gestational hypertension protocol. She is also given hydrochlorothiazide, clonidine, and then ultimately was placed on Procardia XL. Her blood pressure responded beautifully to both the Procardia and the hydrochlorothiazide together. Her headaches have gradually improved. A CT scan without contrast as well as a CT angiogram and venogram were performed. Physical Exam Narrative: The patient is alert. She appears comfortable. Her heart has a regular rate and rhythm with no murmurs appreciated. Lungs are clear to auscultation bilaterally. Cranial nerves are intact Neurologically intact as well. Urinary Catheter Management: Blanca: Cath Placed During This Visit: yes, but has since been removed by the nurse Reason for Continuing Indwelling Catheter: Accurate Measurement of Urinary Output in Critically Ill Patients Urinary Catheter Date of Insertion: 04/19/22 Urinary Catheter Time of Insertion: 04:45 Date Urinary Catheter Removed: 04/19/22 Time Urinary Catheter Discontinued: 17:15 Discharge Data Studies Completed and Pending Completed Studies During Hospitalization Category Date Time Status CT angio head [id number] Urgent Cat Scan 04/19/22 11:[address] head wo con* [id number] Stat Cat Scan 04/18/22 16:36 Completed Radiology Impressions Head CT 04/18/22 16:36 IMPRESSION: No acute intracranial abnormality. Head CTA 04/19/22 11:23 IMPRESSION: 1. Questionable subtle hypoattenuation in the left greater than right posterior parieto-occipital lobes, possibly artifactual. Given the patient's clinical history, MRI may be useful to exclude posterior reversible encephalopathy syndrome. 2. No large vessel stenosis or occlusion. No evidence of venous sinus thrombosis. Laboratory Results WBC 7.4 10^3/uL (4.0-10.0) 04/18/22 14:15 RBC 4.15 10^6/uL (4.1-5.3) 04/18/22 14:15 Hgb 11.8 g/dL (11.5-15.3) 04/18/22 14:15 Hct 37.1 % (37.0-47.0) 04/18/22 14:15 MCV 89.4 fl (81-99) 04/18/22 14:15 MCH 28.4 pg (28.0-34.0) 04/18/22 14:15 MCHC 31.8 g/dL (30.0-36.0) 04/18/22 14:15 RDW 13.4 % (12.1-15.1) 04/18/22 14:15 Plt Count 381 10^3/cmm (130-400) 04/18/22 14:15 MPV 9.3 fL (7.4-10.4) 04/18/22 14:15 Neut % (Auto) 62.6 % 04/18/22 14:15 Lymph % (Auto) 27.5 % 04/18/22 14:15 [place] % (Auto) 5.6 % 04/18/22 14:15 Eos % (Auto) 3.1 % 04/18/22 14:15 Baso % (Auto) 0.8 % 04/18/22 14:15 Neut # (Auto) 4.62 10^3/uL (1.8-7.7) 04/18/22 14:15 Lymph # (Auto) 2.0 10^3/uL (0.8-4.8) 04/18/22 14:15 [place] # (Auto) 0.4 10^3/uL (0.2-0.9) 04/18/22 14:15 Eos # (Auto) 0.2 10^3/uL (0.0-0.8) 04/18/22 14:15 Baso # (Auto) 0.1 10^3/uL (0.0-0.1) 04/18/22 14:15 Nucleated RBC % (auto) 0 % 04/18/22 14:15 Nucleated RBCs # 0.0 /100WBC 04/18/22 14:15 Sodium 138 mmol/L (136-145) 04/18/22 14:15 Potassium 3.8 mmol/L (3.5-5.1) 04/18/22 14:15 Chloride 101 mmol/L (98-107) 04/18/22 14:15 Carbon Dioxide 26 mmol/L (22-29) 04/18/22 14:15 Anion Gap 14.8 (5-19) 04/18/22 14:15 BUN 8 mg/dL (6-20) 04/18/22 14:15 Creatinine 0.7 mg/dL (0.5-0.9) 04/18/22 14:15 GFR Calculation 95.8 mL/min (90-130) 04/18/22 14:15 Glucose 75 mg/dL (65-115) 04/18/22 14:15 Calculated Osmolality 283 mOsm/kg (285-295) L 04/18/22 14:15 Uric Acid 4.4 mg/dL (2.4-5.7) 04/18/22 14:15 Calcium 9.1 mg/dL (8.5-10.5) 04/18/22 14:15 Total Bilirubin 0.4 mg/dL (0.15-1.2) 04/18/22 14:15 AST 17 U/L (0-32) 04/18/22 14:15 ALT 30 U/L (0-33) 04/18/22 14:15 Alkaline Phosphatase 97 U/L (35-105) 04/18/22 14:15 Total Protein 7.4 g/dL (6.6-8.7) 04/18/22 14:15 Albumin 3.8 g/dL (3.5-5.2) 04/18/22 14:15 Globulin 3.6 g/dL (1.3-4.6) 04/18/22 14:15 Urine Color Yellow (Yellow) 04/18/22 14:15 Urine Appearance Clear (CLEAR) 04/18/22 14:15 Urine pH 7 (5-7) 04/18/22 14:15 Ur Specific [place] 1.015 (1.005-1.030) 04/18/22 14:15 Urine Protein Neg (Negative) 04/18/22 14:15 Urine Glucose (UA) Norm (Normal) 04/18/22 14:15 Urine Ketones Negative (Negative) 04/18/22 14:15 Urine Blood 3+ (Negative) H 04/18/22 14:15 Urine Nitrate Negative (Negative) 04/18/22 14:15 Urine Bilirubin Neg (Negative) 04/18/22 14:15 Urine Urobilinogen Norm mg/dL (Negative) 04/18/22 14:15 Ur Leukocyte Esterase Negative (Negative) 04/18/22 14:15 Urine RBC 5-10 /hpf (0-2) H 04/18/22 14:15 Urine WBC 0-4 /hpf (0-5) H 04/18/22 14:15 Ur Squamous Epith Cells 0-4 /hpf (0-5) H 04/18/22 14:15 Amorphous Sediment Not Reportable 04/18/22 14:15 Urine Bacteria Trace /hpf (NONE) 04/18/22 14:15 Urine Mucus 1+ /hpf 04/18/22 14:15 U Random Total Protein 16 mg/dL 04/18/22 14:15 Urine Creatinine 111 mg/dL (28-217) 04/18/22 14:15 Protein/Creatinin Ratio 0.14 mg/mg CR 04/18/22 14:15 Vitals Last Vital Signs Temp 97.4 F L 04/20/22 02:59 Pulse 67 04/20/22 06:52 Resp 16 04/20/22 06:00 BP 107/52 04/20/22 06:52 Pulse Ox 98 04/19/22 04:10 Discharge Plan Discharge Patient Disposition: Home Prescriptions: New hydrochlorothiazide 25 mg Tablet 25 mg PO DAILY Qty: 30 0RF Procardia XL 30 mg tablet extended release 24hr 30 mg PO DAILY Qty: 30 1RF Lexapro 10 mg tablet 10 mg PO DAILY Qty: 30 0RF Continued prenat.vits,lilian,[id number]-tnpc-tmymd Tablet 1 tab PO DAILY ibuprofen 800 mg tablet 400 mg PO TID Discharge Orders: Discharge Order (Routine); Ordered 04/20/22 Ordered By: Mike Henry Referrals: Mike Henry MD [Family Provider] - 4-7 days Discharge Diet: Usual diet Discharge Activity: Limit activity as instructed Patient Instructions: Nifedipine (By mouth) (Adalat CC, Nifedical XL, Procardia, Procardia XL), Hydrochlorothiazide (By mouth), How to Take a Blood Pressure Reading (DC), Preeclampsia and Eclampsia After Delivery (GEN), Opioid Safety Discharge Attestations Time Spent in Discharge Care*: less than 30 min Quality Metrics Clinical Quality Measures [ No reported AMI, CVA or VTE this stay] Coding Level of Care Code Acute Chg FW DC note Diagnoses Severe headache R51.9 hypertension O16.5
[2022-04-20] MEDS: NIFEdipine ER (24 hr) 30 mg Tablet PO (09:18)
== END 2022-04-20 09:20 | disposition home or self-care (01) ==
LOC: OPOB 06:46 → OBGYN 06:46
PROVIDERS: Absent Provider Family Medicine; Admitting Provider Family Medicine; Family Provider Family Medicine; Visit Provider Family Medicine
DX: O16.5 Unspecified maternal hypertension, complicating the puerperium (principal); R51.9 Headache, unspecified
CPT/HCPCS: 12345; 36415; 51702; 70450; 70496; 80053; 81001; 82570; 84156; 84550; 85025; 96374; 96376; 99211; G0378; J3475; J3490; J7030; J7121; Q9967

== ENCOUNTER 2024-10-02 09:38 | Emergency (ER) | payer MEDICAID, SELFPAY ==
[2024-10-02 09:39] VITALS: BP 135/90; PULSE 83; TEMP 36.7; O2SAT 96; BMI 31.4
--- NOTE | 2024-10-02 10:16 | USR_ITS ---
PROCEDURE INFORMATION: Exam: US First Trimester, Transabdominal and US , Transvaginal Exam date and time: 10/02/2024 11:29 AM Age: 34 years old Clinical indication: complicated by abdominal or pelvic pain; Right lower quadrant; First trimester (<14 weeks 0 days); Gestational age or lmp: Per patient 5w2d; Additional info: +upt with HX of iud, rlq pain LABS AND CLINICAL REPORTS: Last menstrual period start date: 08/26/2024 Gestational age (Established): 5 w 2 d Estimated due date (Established): 06/02/2025 TECHNIQUE: Imaging protocol: Real-time transabdominal obstetrical ultrasound of the maternal pelvis and a first trimester , less than 14 weeks 0 days, with image documentation. Transvaginal imaging was used for better evaluation of the fetus, adnexa, and/or cervix. COMPARISON: US OB >= 14 weeks fetus [id number] 11/26/2021 9:45 AM FINDINGS: GESTATION: Gestation: Tiny fluid collection/gestational sac is noted embedded eccentrically in the lower endometrium. No yolk sac. Endometrium measures up to 2.4 cm in thickness. Embryo/ cardiac activity (BPM): Nondetectable Extra-embryonic membranes/Placenta: Unremarkable. No subchorionic bleed. Amniotic/Chorionic fluid: Amniotic and extra-amniotic fluid are normal for gestational age. BIOMETRY: Gestational age (AUA): 5 weeks and 0 days Mean sac diameter: 0.25 cm. MATERNAL: Uterus: Unremarkable. Cervix: Cervical length measures 0 cm. Right ovary/adnexa: Measures 3.9 x 3.6 x 5.9 cm. Corpus luteum cyst is present. Normal vascularity. Left ovary/adnexa: Measures 2.0 x 2.4 x 2.3 cm. Unremarkable. Intraperitoneal space: Small volume free pelvic fluid. US/US OB <=14 wk fetus w transvag IMPRESSION: 1. Gestational sac with estimated gestational age of 5 weeks and 0 days. The absence of detectable heartbeat is consistent with early age. 2. Small volume free pelvic fluid.
[2024-10-02 10:25] LABS: Bilirubin Urine Negative (Negative); Blood Urine 1+ (Negative); Glucose Urine UA Negative (Normal); Ketones Urine Trace (Negative); Leukocyte Esterase Urine Trace (Negative); Nitrate Urine Negative (Negative); Protein Urine 1+ (Negative); Specific Gravity, Urine 1.025 (1.005-1.030); Urine Appearance Cloudy (CLEAR); Urine Color Dark Yellow (Yellow); pH Urine 5.5 (5-7)
[2024-10-02 10:27] LABS: Add Urine Microscopic? YES; Bacteria Urine 3+ /hpf; Hyaline Casts Urine 1.21 /lpf
[2024-10-02 10:40] LABS: Basophils % 1.1 %; Eosinophils # 0.1 10^3/uL (0.0-0.8); Eosinophils % 3.6 %; Hematocrit 34.4 % (36-47); Mean Corpuscular HGB Conc 31.4 g/dL (30-55); Mean Platelet Volume 9.6 fL (7.4-10.4); Monocytes # 0.3 10^3/uL (0.2-0.9); Monocytes % 8.6 %; Neutrophils # 2.13 10^3/uL (1.8-7.7); Neutrophils % 59.4 %; Nucleated Red Blood Cells % 0 %; Platelet Count 253 10^3/cmm (157-399); Red Cell Distribution Width 14.1 % (12.1-15.1); White Blood Count 3.59 10^3/uL (3.29-11.43)
[2024-10-02 11:06] LABS: Alanine Aminotransferase 12 U/L (0-33); Albumin Level 3.7 g/dL (3.5-5.2); Alkaline Phosphatase 65 U/L (35-105); Anion Gap 14.8 (5-19); Aspartate Amino Transferase 15 U/L (0-32); Blood Urea Nitrogen 9 mg/dL (6-20); Calcium 8.6 mg/dL (8.5-10.5); Carbon Dioxide 21 mmol/L (22-29); Chloride 104 mmol/L (98-107); Creatinine Clr Calc Pharmacy 135.1022; Globulin 3.1 g/dL (1.3-4.6); Glomerular Filtration Rate 113.1 mL/min (90-130); Glucose 81 mg/dL (65-115); Osmolality Calculated 280 mOsm/kg (285-295); Potassium 3.8 mmol/L (3.5-5.1); Sodium 136 mmol/L (136-145); Total Bilirubin 0.5 mg/dL (0.15-1.2); Total Protein 6.8 g/dL (6.6-8.7)
[2024-10-02] MEDS: cefTRIAXone 1,000 mg SDV 1000 MG IVP (11:14)
[2024-10-02 11:45] VITALS: BP 143/74; PULSE 71; O2SAT 100
--- NOTE | 2024-10-02 13:01 | W.ED.ABDPA2 ---
HPI - Abdominal Pain General: Chief Complaint: Abdominal Pain Stated Complaint: 5 weeks , abdominal pain Time Seen by Provider: 10/02/24 10:06 History of Present Illness: Patient is a 34-year-old female who presents with lower abdominal and back pain that started this morning. She reports being approximately 5 weeks based on LMP of August 26. Patient is and had a copper IUD (Paragard) removed on Thursday when was discovered. She has been experiencing cramping since before the positive test but reports today's pain is more severe. The pain is located throughout the lower abdomen but more pronounced on the right side. She denies vaginal bleeding or discharge. Patient had previous HCG levels drawn, with Thursday's level at 304 and Thursday's level at 364. A transvaginal and abdominal ultrasound performed on Thursday did not visualize an intrauterine at that time. She was scheduled for follow-up ultrasound next Thursday but presented today due to worsening pain. Related Data Previous Rx's ?Medication ?Instructions ?Recorded cephalexin 500 mg capsule 500 mg PO Q8H 7 days #21 caps 10/02/24 Allergies Allergy/AdvReac Type Severity Reaction Status Date / Time No Known Allergies Allergy Verified 10/02/24 09:52 PFS ED PFSH: Medical History Anxiety and depression Has had symptoms on and off since the age of 15. Has been on medication in the past-Wellbutrin and Abilify. Has not been on medication since at least 2012. She does not have a therapist or psychiatrist currently. No pertinent past medical history Denies diabetes, asthma, hypertension, seizures, DVT/PE, stroke PCP: None Surgical History No history of previous surgery Family History Father Hypertension Stroke Hypercholesteremia Grandmother Diabetes maternal Breast cancer maternal--dx age 40 Family/Other Ovarian cancer Paternal Great Aunt--dx age unknown Colon cancer Paternal Great Aunt--dx age unknown Breast cancer Paternal Great Aunt--dx age unknown Sister Thyroid disease Diabetes Denies family history of Heart disease Uterine cancer Social History (Updated 04/19/22 @ 11:35 by Mike Henry MD) Substance/Drug Use: never Female Reproductive History: : 3 Physical Exam Const: COMMON NORMALS: no acute distress, average body habitus, alert and well nourished GENERAL APPEARANCE: cooperative ORIENTATION/CONSCIOUSNESS: Yes awake HENMT: COMMON NORMALS: normocephalic and atraumatic HEAD & SCALP: normocephalic and atraumatic Eye: COMMON NORMALS: conjunctivae normal CONJUNCTIVA: Yes conjunctivae normal Neck/C-Spine: GENERAL: Yes normal visual inspection Resp: COMMON NORMALS: normal respiratory effort, No retractions and No use of accessory muscles Cardio: COMMON NORMALS: regular rhythm and Peripheral pulses 2+ throughout RHYTHM: regular rhythm PERIPHERAL PULSES: Peripheral pulses 2+ throughout GI: COMMON NORMALS: Soft to palpation PALPATION: Yes Soft to palpation OTHER: bilateral lower abdominal tenderness, no guarding. Extremity: COMMON NORMALS: full ROM and no pedal edema Neuro: COMMON NORMALS: no focal motor deficits SENSORIUM/ORIENTATION: Yes alert Skin: COMMON NORMALS: no rashes or lesions noted GENERAL SKIN EXAM: no rashes or lesions noted Course Vital Signs: Vital signs: Vital Signs Temperature 98.1 F 10/02/24 09:39 Pulse Rate 71 10/02/24 11:45 Blood Pressure 143/74 10/02/24 11:45 Pulse Oximetry 100 10/02/24 11:45 Oxygen Delivery Me thod Room Air 10/02/24 09:39 MDM - Abdominal Pain Medical Decision Making ROS: Constitutional: Denies fever : Reports increased urinary frequency. 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 Mucous membranes moist Neck: Supple Respiratory: No increased work of breathing, no wheezing Cardiac: Regular rate and rhythm, 2+ pulses in all extremities Abdomen: Not distended, mild suprapubic and bilateral lower quadrant tenderness, more pronounced on right side. No guarding or rebound Neuro: Cranial nerves grossly intact, no focal motor or sensory deficits noted INITIAL IMPRESSION AND PLAN: Given the history and presentation, the primary working diagnosis is early intrauterine with possible ectopic . Additional considerations include corpus luteum cyst, urinary tract infection, and threatened . Plan: 1. CBC, CMP 2. Quantitative beta HCG 3. Urinalysis 4. Pelvic ultrasound 5. Pain management as needed 6. Antibiotics if indicated by UA TEST INTERPRETATIONS: Labs: - WBC: 3.5 - Hemoglobin: 10.8 - Hematocrit: 34 - Platelets: 253 - Chemistry: Unremarkable - Beta HC (increasing from 364 four days ago) - UA: 11-20 WBCs, 11-20 epithelial cells, 3+ bacteria (possible contamination) Imaging: - Formal ultrasound shows gestational sac with estimated gestational age of 5 weeks 0 days - No detectable heartbeat (consistent with early ) - Small volume free fluid in pelvis - Right ovary measures 3.9 x 3.6 x 5.9 cm with corpus luteum cyst and normal vascularity PROCEDURES: None performed CONSIDERED BUT NOT PERFORMED: Surgical intervention CONSIDERED but NOT DONE due to no clear indication of ectopic at this time and presence of intrauterine gestational sac FINAL IMPRESSION: Based on all the above, my clinical impression is most compatible with early intrauterine with corpus luteum cyst and urinary tract infection. The clinical picture is not currently suggestive of ruptured ectopic or complete miscarriage. Although other conditions were also considered, they were deemed unlikely based on the clinical information available. CLINICAL DISPOSITION: The patient's current condition is stable in my estimation and the most appropriate and indicated disposition at this time is discharge home with close follow-up. Rationale for Discharge: Patient is hemodynamically stable, has improving HCG levels, confirmed intrauterine gestational sac, and no signs of acute abdomen. The right ovarian cyst appears stable with normal vascularity. Patient demonstrates good understanding of return precautions and has established follow-up care. CASE SUMMARY: 34-year-old female at 5 weeks gestation presenting with abdominal pain after recent IUD removal. Initial concern for possible ectopic led to comprehensive evaluation. Ultrasound showed appropriate intrauterine gestational sac and right ovarian corpus luteum cyst. Beta HCG appropriately rising from 364 to 851 over four days. Incidental UTI discovered and treated. Patient discharged home with close follow-up and clear return precautions. Lab Data I reviewed the patient's lab results. 10/02/24 10:25 10/02/24 10:25 Labs/Radiology: Radiology Impressions Obstetrics Ultrasound 10/02/24 10:16 IMPRESSION: 1. Gestational sac with estimated gestational age of 5 weeks and 0 days. The absence of detectable heartbeat is consistent with early age. 2. Small volume free pelvic fluid. Laboratory Results WBC 3.59 10^3/uL (3.29-11.43) 10/02/24 10:25 RBC 4.00 10^6/uL (3.85-5.65) 10/02/24 10:25 Hgb 10.80 g/dL (11.27-16.99) L 10/02/24 10:25 Hct 34.4 % (36-47) L 10/02/24 10:25 MCV 86.0 fl (85-98) 10/02/24 10:25 MCH 27.0 pg (27-33) 10/02/24 10:25 MCHC 31.4 g/dL (30-55) 10/02/24 10:25 RDW 14.1 % (12.1-15.1) 10/02/24 10:25 Plt Count 253 10^3/cmm (157-399) 10/02/24 10:25 MPV 9.6 fL (7.4-10.4) 10/02/24 10:25 Neut % (Auto) 59.4 % 10/02/24 10:25 Lymph % (Auto) 27.0 % 10/02/24 10:25 [place] % (Auto) 8.6 % 10/02/24 10:25 Eos % (Auto) 3.6 % 10/02/24 10:25 Baso % (Auto) 1.1 % 10/02/24 10:25 Neut # (Auto) 2.13 10^3/uL (1.8-7.7) 10/02/24 10:25 Lymph # (Auto) 1.0 10^3/uL (0.8-4.8) 10/02/24 10:25 [place] # (Auto) 0.3 10^3/uL (0.2-0.9) 10/02/24 10:25 Eos # (Auto) 0.1 10^3/uL (0.0-0.8) 10/02/24 10:25 Baso # (Auto) 0.0 10^3/uL (0.0-0.1) 10/02/24 10:25 Nucleated RBC % (auto) 0 % 10/02/24 10:25 Nucleated RBCs # 0.0 /100WBC 10/02/24 10:25 Sodium 136 mmol/L (136-145) 10/02/24 10:25 Potassium 3.8 mmol/L (3.5-5.1) 10/02/24 10:25 Chloride 104 mmol/L (98-107) 10/02/24 10:25 Carbon Dioxide 21 mmol/L (22-29) L 10/02/24 10:25 Anion Gap 14.8 (5-19) 10/02/24 10:25 BUN 9 mg/dL (6-20) 10/02/24 10:25 Creatinine 0.6 mg/dL (0.5-0.9) 10/02/24 10:25 GFR Calculation 113.1 mL/min (90-130) 10/02/24 10:25 Glucose 81 mg/dL (65-115) 10/02/24 10:25 Calculated Osmolality 280 mOsm/kg (285-295) L 10/02/24 10:25 Calcium 8.6 mg/dL (8.5-10.5) 10/02/24 10:25 Total Bilirubin 0.5 mg/dL (0.15-1.2) 10/02/24 10:25 AST 15 U/L (0-32) 10/02/24 10:25 ALT 12 U/L (0-33) 10/02/24 10:25 Alkaline Phosphatase 65 U/L (35-105) 10/02/24 10:25 Total Protein 6.8 g/dL (6.6-8.7) 10/02/24 10:25 Albumin 3.7 g/dL (3.5-5.2) 10/02/24 10:25 Globulin 3.1 g/dL (1.3-4.6) 10/02/24 10:25 Ser , Semi-Qnt 851.90 mIU/mL 10/02/24 10:25 Urine Color Dark yellow (Yellow) A 10/02/24 10:01 Urine Appearance Cloudy (CLEAR) A 10/02/24 10:01 Urine pH 5.5 (5-7) 10/02/24 10:01 Ur Specific Girdler 1.025 (1.005-1.030) 10/02/24 10:01 Urine Protein 1+ (Negative) A 10/02/24 10:01 Urine Glucose (UA) Negative (Normal) 10/02/24 10:01 Urine Ketones Trace (Negative) 10/02/24 10:01 Urine Blood 1+ (Negative) A 10/02/24 10:01 Urine Nitrate Negative (Negative) 10/02/24 10:01 Urine Bilirubin Negative (Negative) 10/02/24 10:01 Urine Urobilinogen 1.0 mg/dL (Negative) 10/02/24 10:01 Ur Leukocyte Esterase Trace (Negative) A 10/02/24 10:01 Urine RBC 3-5 /hpf (0-2) 10/02/24 10:01 Urine WBC 11-20 /hpf (0-5) H 10/02/24 10:01 Ur Squamous Epith Cells 11-20 /hpf (0-5) H 10/02/24 10:01 Amorphous Sediment Not Reportable 10/02/24 10:01 Urine Bacteria 3+ /hpf (NONE) H 10/02/24 10:01 Hyaline Casts 1.21 /lpf 10/02/24 10:01 All radiology interpretation(s) finalized by discharge Discharge Plan Discharge Patient Disposition: Home Clinical Impression: Abdominal pain affecting , Urinary tract infection, Ovarian cyst Condition: Stable Prescriptions: New cephalexin 500 mg capsule 500 mg PO Q8H 7 Days Qty: 21 0RF Discharge Orders: Discharge ED (Routine); Ordered 10/02/24 Ordered By: Rene Romeo Referrals: Mike Henry MD [Family Provider, Family Practice] Patient Instructions: Abdominal Pain (ED), Abdominal Pain in (ED) Activity Restrictions/Additional Instructions: DISCHARGE INSTRUCTIONS: You have been diagnosed with an early (approximately 5 weeks) and a urinary tract infection. You have been prescribed Keflex for the UTI. Take all antibiotics as prescribed. Return to the Emergency Department immediately if you experience: - Severe or worsening abdominal pain - Vaginal bleeding - Dizziness or fainting - Shortness of breath Follow up with your doctor at [facility] as scheduled next Thursday for repeat ultrasound. Continue vitamins and maintain close monitoring with your physician given the early stage of . Print Language: Greek Coding Level of Care Code ED Unarmed Security Guard for Cinthya Soriano
[2024-10-02 13:19] VITALS: BP 124/92; PULSE 75; O2SAT 95
== END 2024-10-02 13:23 | disposition home or self-care (01) ==
PROVIDERS: Emergency Provider Student in an Organized Health Care Education/Training Program; Family Provider Family Medicine
DX: O23.41 Unspecified infection of urinary tract in pregnancy, first trimester (principal); N39.0 Urinary tract infection, site not specified; N83.11 Corpus luteum cyst of right ovary; O34.81 Maternal care for other abnormalities of pelvic organs, first trimester; Z3A.01 Less than 8 weeks gestation of pregnancy
CPT/HCPCS: 76801; 76817; 80053; 81001; 84702; 85025; 96374; 99284; J0696